=== PATIENT | female | born 1975 | race Caucasian/White ===

== ENCOUNTER 2016-12-15 07:51 | Emergency (ER) | payer BC ==
--- NOTE | ~2016-12-15 | CT4 ---
STS. [facility] A Service of [facility] [place] RADIOLOGY TEXT RESULTS PATIENT: BESSIE BAUTISTA LOCATION: SED : 71 UNIT #: [id number] AGE: [address]: Antonio Rodriguez MD SEX: F ORDER DR: [id number] [address] [address] [id number] MR#: [id number] Acc #: [id number] NAME: BESSIE BAUTISTA : 1975 SEX: F STUDY DATE/TIME: UNIT: SED ROOM: STUDY DESCRIPTION: CT Abd and Pelv Wo Cont Attending Physician: Antonio Rodriguez M.D. Ordering Physician: Antonio Rodriguez M.D. Primary Care Physician: Briana Euceda M.D. MEDICAL IMAGING REPORT This report is preliminary unless electronic signature is present. EXAM CT abdomen and pelvis without contrast 12/15/2016 08:50 hours HISTORY 41-year-old woman complaining of right-sided abdominal pain with intermittent inability to urinate for 1 month. Right-sided pain since yesterday. COMPARISON CT abdomen 04/06/2015 TECHNIQUE Helical noncontrasted images were obtained from the lung bases through the pubic symphysis without oral or intravenous contrast. Sagittal and coronal reconstructions were performed. Total exam DLP 1412 mGy - cm. This CT exam was performed with one or more of the following radiation dose reduction techniques: automatic exposure control, adjustment of mA and/or kV according to patient size, and iterative reconstruction. FINDINGS Images through the lung bases are unchanged. There is no acute pulmonary density or effusion. The distal esophagus is normal. Noncontrasted images through the abdomen demonstrate a normal appearance to the liver, spleen, pancreas and bile ducts. There are clips consistent with cholecystectomy. The adrenal glands are normal. The kidneys demonstrate no obstruction. There is no mass. There is a 2 mm stone nonobstructing in the lower pole left kidney. There is no ureterectasis or ureteral calculus seen. The bladder is normal. There are pelvic phleboliths. Stomach is contracted but normal in appearance. There is no small bowel STS. [facility] A Service of [facility] RADIOLOGY TEXT RESULTS PATIENT: BESSIE BAUTISTA LOCATION: SED : 71 UNIT #: [id number] AGE: [address]: Antonio Rodriguez MD SEX: F ORDER DR: distension or small bowel wall thickening. The terminal ileum is normal. There is no evidence of appendicitis. The colon demonstrates a moderate amount of stool. There is no distension or wall thickening. CT pelvis demonstrates normal appearing right and left ovary. The uterus is surgically absent. The bladder is nondistended. No bladder wall thickening is seen. There is a mild pelvic relaxation with inferior displacement of the remaining vagina/cervix and rectum. There is stable degenerative changes in the lower lumbar spine. IMPRESSION 1. There is a 2 mm nonobstructing stone in the lower pole left kidney. There is no renal obstruction or ureteral stone. 2. No distension of the bowel. 3. Note is made of mild pelvic relaxation with slight inferior positioning of the remaining vagina perhaps cervix and rectum. This could be symptomatic. Dictated by... Yudelka Mandujano M.D. THIS IS AN ELECTRONICALLY VERIFIED REPORT Yudelka Mandujano M.D. at 12/15/2016 2:35 PM ADRYAN/uvaldo TD: 12/15/2016 13:55 JOB #: [id number] MEDICAL IMAGING REPORT Page 1 of 1
[2016-12-15] MEDS ORDERED: STOOL SOFTENER1 EAC1 PO (07:56)
[2016-12-15 08:36] LABS: URINE APPEARANCE CLEAR; URINE BILIRUBIN NEG (NEG); URINE BLOOD NEG (NEG); URINE COLOR YELLOW; URINE GLUCOSE NEG (NORM); URINE KETONE NEG (NEG); URINE LEUKOCYTE ESTERASE NEG (NEG); URINE NITRATE NEG (NEG); URINE PROTEIN NEG (NEG); URINE SOURCE CLEAN CATCH; URINE UROBILINOGEN 0.2 MG/DL (NORM)
[2016-12-15 08:38] LABS: BASOPHIL# 0.1 X10e3 (0-0.3); BASOPHIL% 1.1 % (0-2.5); EOSINOPHIL# 0.3 X10e3 (0-0.7); EOSINOPHIL% 3.6 % (0.0-7.0); HEMATOCRIT 41.8 % (35.0-45.0); LYMPHOCYTE# 1.6 X10e3 (1.0-3.5); LYMPHOCYTE% 19.5 % (17.0-45.0); MEAN CELL VOLUME 83.8 FL (83-96); MEAN CORPUSCULAR HGB CONC 33.5 g/dL (30-36); MEAN PLATELET VOLUME 8.9 FL (6.5-11.5); MONOCYTE# 0.5 X10e3 (0-1.0); MONOCYTE% 6.1 % (3.0-12.0); NEUTROPHIL# 5.5 X10e3 (1.5-7.1); NEUTROPHIL% 69.7 % (40-75); PLATELET COUNT 331 X10e3 (140-420); RED BLOOD COUNT 4.99 X10e (3.90-5.30); RED CELL DISTRIBUTION WIDTH 13.4 % (11.0-15.5)
[2016-12-15 08:47] LABS: DIFF IND NO; MICRO INDICATED? NO
[2016-12-15 09:03] LABS: ALBUMIN SERUM 3.7 g/dL (3.5-5.0); BILIRUBIN, DIRECT 0.1 mg/dL (0.0-0.2); BILIRUBIN,INDIRECT 0.5 mg/dL (0.0-0.9); BILIRUBIN,TOTAL 0.6 mg/dL (0.2-2.0); BUN/CREATININE RATIO 14.28; CALCIUM SERUM 8.5 mg/dL (8.4-10.2); CREATININE SERUM 0.7 mg/dL (0.6-1.4); GLOM FILT RATE Estimated 106.1 mL/min (>60); POTASSIUM 3.8 mmol/L (3.5-5.1); PROTEIN TOTAL SERUM 6.4 g/dL (6.0-8.3)
== END 2016-12-15 10:46 | disposition home or self-care (01) ==
LOC: SED 07:51
PROVIDERS: Emergency Medicine
DX: K59.00 Constipation, unspecified (principal); K21.9 Gastro-esophageal reflux disease without esophagitis; Z90.710 Acquired absence of both cervix and uterus; Z90.49 Acquired absence of other specified parts of digestive tract; Z87.891 Personal history of nicotine dependence
CPT/HCPCS: 36415; 74176; 80048; 80076; 81003; 82150; 82270; 83690; 85025; 96361; 96374; 96375; 99284; J2270; J2405